=== PATIENT | male | born 1980 | race Caucasian/White ===

== ENCOUNTER → 2017-08-25 | Outpatient (CLI) | payer BC ==
--- NOTE | 2017-08-25 14:44 | Diagnostic Imaging Report ---
INDICATION: Chronic low back pain. FINDINGS: Good alignment of vertebral bodies. There is wedge type deformity of the anterior aspect of L1 with approximately 30-40% loss of body height anteriorly. Lumbar vertebral bodies otherwise appear normal. Facets are in good alignment. Mild hypertrophic changes noted of the lower facets. SI joints are symmetrical with mild sclerosis along the iliac side. IMPRESSION: 1. 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 No previous studies for comparison. 2. 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 Dictated by: Dictated on workstation # [id number]
== END ==
LOC: RAD 13:48
PROVIDERS: ATTEND Chiropractor
DX: M54.5 Low back pain (principal)
CPT/HCPCS: 72100